=== PATIENT | male | born 1955 | race Caucasian/White ===

== ENCOUNTER 2016-08-30 14:55 | Inpatient (IN) | payer OTHER ==
[~2016-08-30] VITALS: Ht 180.3 cm; Wt 110.9 kg
--- NOTE | 2016-08-30 15:00 | NUR ---
SECURITY AT BEDSIDE FOR WANDING AND PT CHANGED INTO BLUE SCRUBS
--- NOTE | 2016-08-30 15:00 | NUR ---
PT BIBA ON PEER FOR PSYCH EVAL. PER PT, HE CALLED HIS SISTER TO VENT ABOUT WHAT A BAD DAY HE WAS HAVING AND SISTER BECAME WORRIED AND SENT PD AND EMS TO PT'S WORKPLACE. PT STATES HE IS WORRIED ABOUT HIS JOB NOW. 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 PT STATES THAT HE HAS BEEN TAKING ZOLOFT, BUSPAR AND ATIVAN (1MG TID) PRESCRIBED, BUT STATES THAT HIS MEDS "HAVE STOPPED WORKING". PT STATES THAT THIS HAPPENED LAST IN 2012. PT REPORTS PROTECTIVE FACTOR OF HIS ADOPTED DOG. 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
[2016-08-30] MEDS ORDERED: ATIVAN1 M1 PO (15:20)
--- NOTE | 2016-08-30 15:25 | ED PSYCHIATRIC COMPLAINT ---
See Addendum History of Present Illness General Chief Complaint: Psychiatric Related Complaint Stated Complaint: ON PEC, PSYCH EVAL Source: patient Exam Limitations: clinical condition, poor historian Vital Signs & Intake/Output Vital Signs & Intake/Output Vital Signs Date Time Temp Pulse Resp B/P B/P Pulse O2 O2 Flow FiO2 Mean Ox Delivery Rate 08/31 1019 97.9 67 18 142/72 97 Room Air 08/31 0827 97.1 72 18 154/80 99 Room Air 08/31 0628 97.8 75 18 175/92 98 Room Air 08/30 2247 Room Air 08/30 2236 97.8 78 18 171/88 96 Room Air 08/30 2039 Room Air 08/30 2010 97.8 89 19 161/79 96 Room Air 08/30 1753 Room Air 08/30 1515 98.0 86 16 138/84 95 Room Air ED Intake and Output 08/31 0000 08/30 1200 Intake Total Output Total Balance Weight Measurement Method Allergies Coded Allergies: peanut (DIARRHEA 08/30/16) Reconcile Medications Buspirone HCl 10 MG TABLET 1 TAB PO TID MENTAL HEALTH (Reported) Gabapentin 300 MG CAPSULE 1 CAP PO TID UNKNOWN (Reported) Levomefolate Calcium (L-Methylfolate) 15 MG TABLET 1 TAB PO DAILY SUPPLEMENT (Reported) Lorazepam (Ativan) 1 MG TABLET 1 TAB PO TID ANXIETY (Reported) Sertraline HCl 50 MG TABLET 3 TAB PO QAM MENTAL HEALTH (Reported) Triage Nurses Notes Reviewed? yes Onset: Abrupt Duration: unknown duration Timing: unknown HPI: 08/30/16 6:25 PM 61-year-old man presents to the emergency department brought in by police and EMS for depression and suicidal ideation. Apparently the patient said he was talking to his sister Harini earlier today and she became concerned about his comments and called 911. He was actually taken by police and EMS from his job. He denies suicidal ideation at this time. He says he just said some things that he didn't mean. He says his sister is dramatic and she currently has cancer. The onset of the symptoms was abrupt, the duration is really unknown, the severity is significant; as his symptoms required to come to the emergency department for care. He does state he has past medical history of depression and anxiety. (ASHLEY MADRID DO) Past History Travel History Traveled to [place] past 21 day No Medical History Any Pertinent Medical History? see below for history Psychiatric: anxiety, depression Surgical History Surgical History: non-contributory Family History Hx Contributory? No (ASHLEY MADRID DO) Review of Systems Review of Systems Constitutional: Reports: no symptoms. EENTM: Reports: no symptoms. Respiratory: Reports: no symptoms. Cardiovascular: Reports: no symptoms. GI: Reports: no symptoms. Genitourinary: Reports: no symptoms. Musculoskeletal: Reports: no symptoms. Skin: Reports: no symptoms. Neurological/Psychological: Denies: depressed. Hematologic/Endocrine: Reports: no symptoms. Immunologic/Allergic: Reports: no symptoms. (ASHLEY MADRID DO) Physical Exam Physical Exam General Appearance: alert, awake, anxious, moderate distress Head: atraumatic, normal appearance Eyes: Bilateral: normal appearance, PERRL, EOMI. Ears, Nose, Throat: normal pharynx, normal ENT inspection Neck: normal inspection, supple Respiratory: normal breath sounds, chest non-tender, no respiratory distress Cardiovascular: regular rate/rhythm Gastrointestinal: soft, non-tender Extremities: normal range of motion, injury present Neurological/Psychiatric: no motor/sensory deficits, awake, alert, anxious, oriented x 3 Appearance/Memory/Insight: disheveled Behavoir/Eye Contact/Speech: cooperative Thoughts/Hallucinations: delusions, flight of ideas, grandiose Skin: intact, normal color, warm/dry SAD PERSONS SAD PERSONS Response Value Male Sex? yes 1 Age <19 or >45 years? yes 1 Depression/Hopelessness? yes 2 Previous Attempts/Psych Care yes 1 Single//? yes 1 Social Support? has no support 1 Total 7 SAD PERSONS Done? yes (ASHLEY MADRID DO) Progress Differential Diagnosis: drug intoxication, drug overdose, drug withdrawal, depression, psychosis, bipolar disorder Plan of Care: Orders Procedure Date/time Status Regular Diet 08/31 B Active Admit to inpatient psych 08/31 1255 Active Continuous Observation Monitor 08/31 0433 Active Add-on Test (ER Only) 08/30 1831 Active Continuous Observation Monitor 08/30 1546 Active URINE DRUG SCREEN FOR ER ONLY 08/30 1546 Complete ETHANOL 08/30 1546 Complete COMPREHENSIVE METABOLIC PANEL 08/30 1546 Complete CBC WITHOUT DIFFERENTIAL 08/30 1546 Complete AMYLASE 08/30 1546 Complete ED CRISIS PSYCH CONSULT 08/30 1546 Active Current Medications Sig/Megha Start time Last Medication Dose Stop Time Status Admin Sertraline HCl 150 MG QAM 08/31 1000 UNVr 08/31 (Zoloft) 1018 Buspirone HCl 10 MG TID 08/30 2199 UNVr 08/31 (Buspar) 1018 Gabapentin 300 MG TID 08/30 2199 UNVr 08/31 (Neurontin) 1018 Lorazepam 1 MG TID 08/30 2199 AC 08/31 (Ativan) 1018 Trazodone HCl 50 MG AT BEDTIME 08/30 2199 UNVr 08/30 (Desyrel) 220 Laboratory Tests 08/30/16 1735: Urine Opiates Screen < 100.00, Methadone Screen 50, Barbiturate Screen < 60, Ur Phencyclidine Scrn < 6.00, Amphetamines Screen < 100, U Benzodiazepines Scrn 135 , Urine Cocaine Screen < 50, Urine Cannabis Screen > 80.00 H 08/30/16 1650: Anion Gap 11, Estimated GFR > 60, BUN/Creatinine Ratio 16.3, Glucose 89, Calcium 9.2, Total Bilirubin 0.4, AST 45, ALT 59, Alkaline Phosphatase 85, Total Protein 7.5, Albumin 4.6, Globulin 2.9, Albumin/Globulin Ratio 1.6, Amylase 55, CBC w Diff NO MAN DIFF REQ, RBC 5.36, MCV 85.2, MCH 28.6, RDW 13.7, MPV 7.4, Gran % 59.4, Lymphocytes % 29.6, Monocytes % 6.8, Eosinophils % 3.8, Basophils % 0.4, Absolute Granulocytes 7.7 H, Absolute Lymphocytes 3.9 H, Absolute Monocytes 0.9 H, Absolute Eosinophils 0.5, Absolute Basophils 0.1, PUBS MCHC 33.6, Serum Alcohol < 10.0 7:10 AM PATIENT SIGNED OUT TO ME BY DR SEGOVIA PENDING CRISIS EVALUATION. 10:45 AM PATIENT TO BE ADMITTED TO [facility] FOR MAJOR DEPRESSIVE DISORDER. WAITIGN FINAL APPROVAL FOR ADMISSION ORDER PER CRISIS. (CLAUDE RAMOS MD) Initial ED EKG: none (ASHLEY MADRID DO) Hand-Off Endorsed To: CLAUDE RAMOS MD Endorsed Time: 0700 Pending: consult Comments: PT HAS BEEN SEEN AND EVALUATED BY THE ACCOUNTING MACHINE OPERATOR. PT TO BE HELD OVERNIGHT FOR RE-EVAL IN THE MORNING. (JULIETTE KEMP,ZEHRA Ordoñez) Hand-Off Endorsed To: ASHELY PATRICIA MD Endorsed Time: 1132 Pending: consult (CRISIS INPATIENT BED) (CLAUDE RAMOS MD) Departure Departure Disposition: STILL A PATIENT Condition: Stable Departure Forms: Customer Survey General Discharge Information Comments 08/30/16 6:30 PM The patient will be signed out to Dr. Segovia at 7 PM (ASHLEY MADRID DO) Departure Clinical Impression Primary Impression: Major depression Psych Admission Note Psychiatric Admission: I have seen and evaluated JACKELINE VERMA. I have also reviewed all the pertinent lab results and diagnostic results. JACKELINE VERMA will be admitted to our inpatient Psychiatric unit for treatment and care. (CLAUDE RAMOS MD) Psych Admission Note Psychiatric Admission: I have also reviewed all the pertinent lab results and diagnostic results. JACKELINE VERMA will be admitted to our inpatient Psychiatric unit for treatment and care. (ASHLEY PATRICIA MD) Critical Care Note Critical Care Note Critical Care Time: 30-74 min (ASHLEY MADRID DO)
--- NOTE | 2016-08-30 15:33 | NUR ---
DR MADRID AT BEDSIDE FOR EVAL
[2016-08-30] MEDS ORDERED: BUSPIRONE HCL10 M1 PO (16:18)
[2016-08-30] MEDS ORDERED: L-METHYLFOLATE15 MG PO (16:19)
[2016-08-30] MEDS ORDERED: GABAPENTIN300 M2 PO (16:20)
[2016-08-30] MEDS ORDERED: SERTRALINE HCL50 MG PO (16:20)
--- NOTE | 2016-08-30 16:43 | NUR ---
PT'S SISTER CALLED TO SPEAK WITH PT. PT IS CURRENTLY ON PHONE WITH HER. HE REMAINS CALM. PER PT, HIS SISTER HAS STAGE 4 CANCER AND IS HEAVILY MEDICATED AND TENDS TO "BLOW THINGS OUT OF PROPORTION". SITTER AT DOOR.
--- NOTE | 2016-08-30 16:59 | NUR ---
BLOOD DRAWN AND SENT TO LAB BY THIS [facility]. SST/LAV
[2016-08-30 17:04] LABS: ABSOLUTE BASOPHIL COUNT 0.1 /CUMM (0.0-0.2); ABSOLUTE EOSINOPHIL COUNT 0.5 /CUMM (0.0-0.7); ABSOLUTE GRANULOCYTE CT 7.7 /CUMM (1.4-6.5); ABSOLUTE LYMPH COUNT 3.9 /CUMM (1.2-3.4); ABSOLUTE MONOCYTE COUNT 0.9 /CUMM (0.10-0.60); BASOPHIL % 0.4 % (0.0-2.0); EOSINOPHIL % 3.8 % (0-5); GRANULOCYTE % 59.4 % (42.2-75.2); HEMATOCRIT 45.7 % (42-52); MEAN CORPUSCULAR HGB 28.6 PG (27.0-31.0); MEAN CORPUSCULAR HGB CONC 33.6 G/DL (33.0-37.0); MEAN CORPUSCULAR VOLUME 85.2 FL (80.0-94.0); MEAN PLATELET VOLUME 7.4 FL (7.4-10.4); PLATELET COUNT 292 /CUMM (130-400); RBC DISTRIBUTION WIDTH 13.7 % (11.5-14.5); RED BLOOD CELL CT 5.36 /CUMM (4.70-6.10)
--- NOTE | 2016-08-30 17:52 | NUR ---
DR MADRID HAD ORDERED PT 1MG ATIVAN PO FOR ANXIETY BUT PT REFUSED THE MEDICATION
--- NOTE | 2016-08-30 18:34 | NUR ---
CANDACE SAEZ FROM CRISIS REQUESTED THAT THIS RN OBTAIN PT'S CELL PHONE FROM ER SAFE SO THAT PT COULD RETREIVE TELEPHONE NUMBERS. THIS RN REMOVED BAG, GAVE PT HIS CELL PHONE AND WILL WRITE ANOTHER NOTE WHEN PHONE IS BACK IN BAG AND BAG IS RETURNED TO ER SAFE.
--- NOTE | 2016-08-30 18:53 | NUR ---
PT'S CELL PHONE RETURNED TO VALUABLES BAG AND SEALED WITH TAPE. VALUABLES BAG RETURNED TO ER SAFE.
--- NOTE | 2016-08-30 19:20 | ED PSYCH CRISIS CONSULTATION ---
See Addendum Crisis Consult Basic Assessment Date of Consult: 08/30/16 Responsible Person/Accompanied By: Self with police PEER Insurance Authorization: Insurance #1: Insurance name: [employer] Phone number: Policy number: [id number] Group number: [id number] Authorization number: ED Provider: Patient's ED Provider: ASHLEY MADRID DO Primary Care Physician: Patient's PCP: PATIENT HAS NO PRIMARY CARE DR PCP's Phone Number: Current Psychiatrist: Dr. Steven Douglas, at [facility] Chief Complaint: Psychiatric Related Complaint Patient's Quote: "My sister who called 911 has always been overdramatic; outof proportion." Present Illness: 61 M BIBA on [place] today, 08/30/16 at 1500 with a CC of altered mental status. He had called his sister, Harini Kelly, , today to complain about his bad day, and made statements about being depressed and feeling worthless, and his medication is not working any longer. Harini called EMS and the police responded, and found the patient to have altered mental status. 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 This is the first presentation to this hospital; the patient is followed at [facility] by Dr. Steven Douglas. Last visit was in May; next is on October 02, per patient report. He states he is followed for anxiety and depression. The patient reported to his sister today that his medications had stopped working. He stated that in November 2012, his meds also stopped working, and he stayed overnight in [facility] for medication adjustment, where he was started on Ativan. He had been in talk therapy from November through February 2013 at [facility]. Med claim history shows: Buspirone 10 mg #90 tabs for 30 days on 08/26/16 Lorazepam 1 mg #90/30 days on 08/19/16 Sertraline 50 mg #90/30 days on 08/19/16 Gabapentin 300 mg #90/30 days on 08/13/16 Last Seroquel XR 300 mg #9 tabs for 9 days on 04/27/16 Older claims for Mirtazapine and trazodone. The patient confirms that he takes Buspirone as his primary antidepressant, meant to replace Zoloft. Zoloft keeps him anchored and is an adjunct for depression. He reports he takes Seroquel XR 300 mg for sleep, and also a "big yellow capsule" for depression. There is no med claim history for Seroquel recently, and not in the dose the patient reports. MSE: Alert and oriented to person, day, date, month, knows he is in a hospital in [place]. He is upset that he is being held here and states, "I'm not paying any hospital bills." Thought processes are linear with odd content. He denies any history of AH or VH , but content includes reporting that he has developed a discipline to step outside of himself, observe himself, and then report back to his physician. He reports his last experience with depersonalization was when he had an out of body experience during a shiatzu massage in 1992, so he could get relaxed. He also reports that he made a discovery in 2007 on how to make a focused electromagnetic pulse in his cellar, and handed that information off to his contact, an , but he cannot talk about it. He states that the EM pulses from [place] in WW caught the attention of UFOs who began to visit the Earth several years later. He denies any special paniagua. He denies symptoms of derealization; "I'm pretty well grounded, as in an electrical sense." Despite stating that his medication is not working, he reports that at every visit with his psychiatrist, he fills out a form to report problems with medications, and "I always tell him 'Yes,' the medications are fine." He then states that Dr. Douglas knows that the medications, including Zoloft are not working anymore. He reports he drinks one Fosters beer every two weeks, and that a couple of days ago, he had a couple of hist of marijuana, which he uses a few times per week. [ Note: Utox is positive for cannabis, only.] The patient denies suicidal or homicidal ideation and denies any history of suicide attempt. PSHx: The patient lives alone with his dog, adopted from [place]. 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 He has never been and has no children. He describes bad luck with women and feels his sister Kimmy has helped him with advice. He does not want to talk to her because she is a drug addict and stole the stamp collection belonging to himself and his parents. [place], whom he talked with today. She has an adopted daughter, the patient's niece, whom he has not seen in 5 years. he reports that his nephew is at [employer] in pre-med studies. He mentions another sister, Katie, whom he does not get along with. Collateral: 1. TC placed to his sister Harini, who called EMS, , 08/30/16 at 1830; [facility] 2. TC placed to Dr. Douglas, psychiatrist at [facility], X. [phone]; expect return call on 08/31/16. Patient's Address: [address] [place] [address] Other Phone Number: Who Do You Live With? Patient/Self Family/Informants Interviewed: Calls placed to sister Harini and Dr. Douglas, psychiatrist; expect return calls. Allergies - Coded Allergies: peanut (DIARRHEA 08/30/16) Current Medications - Scheduled Medications Buspirone HCl 10 MG TABLET 1 TAB PO TID MENTAL HEALTH #90 (Reported) Entered as Reported by EUFEMIA JONES on 08/30/16 1618 Gabapentin 300 MG CAPSULE 1 CAP PO TID UNKNOWN #90 (Reported) Entered as Reported by EUFEMIA JONES on 08/30/16 1620 Levomefolate Calcium (L-Methylfolate) 15 MG TABLET 1 TAB PO DAILY SUPPLEMENT (Reported) Entered as Reported by EUFEMIA JONES on 08/30/16 1619 Lorazepam (Ativan) 1 MG TABLET 1 TAB PO TID ANXIETY (Reported) Entered as Reported by EUFEMIA JONES on 08/30/16 1520 Sertraline HCl 50 MG TABLET 3 TAB PO QAM MENTAL HEALTH #90 (Reported) Entered as Reported by EUFEMIA JONES on 08/30/16 1620 Laboratory Results: Laboratory Tests 08/30/16 1735: Urine Opiates Screen < 100.00, Methadone Screen 50, Barbiturate Screen < 60, Ur Phencyclidine Scrn < 6.00, Amphetamines Screen < 100, U Benzodiazepines Scrn 135 , Urine Cocaine Screen < 50, Urine Cannabis Screen > 80.00 H 08/30/16 1650: Anion Gap 11, Estimated GFR > 60, BUN/Creatinine Ratio 16.3, Glucose 89, Calcium 9.2, Total Bilirubin 0.4, AST 45, ALT 59, Alkaline Phosphatase 85, Total Protein 7.5, Albumin 4.6, Globulin 2.9, Albumin/Globulin Ratio 1.6, Amylase 55, CBC w Diff NO MAN DIFF REQ, RBC 5.36, MCV 85.2, MCH 28.6, RDW 13.7, MPV 7.4, Gran % 59.4, Lymphocytes % 29.6, Monocytes % 6.8, Eosinophils % 3.8, Basophils % 0.4, Absolute Granulocytes 7.7 H, Absolute Lymphocytes 3.9 H, Absolute Monocytes 0.9 H, Absolute Eosinophils 0.5, Absolute Basophils 0.1, PUBS MCHC 33.6, Serum Alcohol < 10.0 Past History Past Medical History Neurological: NONE EENT: NONE Cardiovascular: NONE Respiratory: NONE Gastrointestinal: NONE Hepatic: NONE Renal: NONE Musculoskeletal: NONE Psychiatric: anxiety, depression Endocrine: NONE Blood Disorders: NONE Cancer(s): NONE GLASS SETTER/Reproductive: NONE Past Surgical History Surgical History: Spinal fusion 04/16/1998 after back injury at work. 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 How much used/taken Few hits How often Few times/week Substance Abuse Treatment Substance Abuse Treatment Past Substance Abuse [place] No (Denies) Inpatient Treatment No Outpatient Treatment No Current Mental Status Mental Status Orientation: Confused, Person, Place Affect: Anxious, Constricted Speech: Normal Neuro-vegetative: WNL Appearance Appearance- Dress/Hygiene: Hospital garb Behaviors Thought Process: Disorganized, Irrational, Tangential Thought Content: Delusions Memory: Short term memory Insight: Poor SI/HI Risk Assessment Past Suicidal Ideation/Attempts No (Denies) Current Suicidal Ideation/Att No Past Homicidal Ideation/Att: No Current Homicidal Ideation/Attempts No Degree of Intent: None Danger To: Self Gravely Disabled: Lack of Insight, Poor Judgment Risk Factors: high anxiety/distress, SA/MH hospitalized, substance abuse, lives alone, male Lethality Ratin PTSD Checklist PTSD Done? patient declined ED Management Sitter: Yes Restraints: No DSM5/PS Stressors/Medical Prob Diagnosis' (DSM 5, Stressors, Medical): F22 Delusional F32.9 Depression NOS F41.1 Anxiety NOS Current GAF: 28 Departure Disposition Psych Medical Clearance Date: 08/30/16 Medically Cleared at: 1755 Time Started: 1754 Time Ended: 1824 Referrals PATIENT HAS NO PRIMARY CARE DR (PCP/Family)
--- NOTE | 2016-08-30 19:32 | NUR ---
PT REQUESTED AND WAS PROVIDED WITH A 21MG NICOTINE PATCH. PT RAISED HIS VOICE AND SAID "HOW MANY TIMES DO I HAVE TO TELL YOU THIS INFORMATION?". THIS RN TOLD PT THAT BEFIRE HE CAN RECEIVE A MEDICATION THAT I NEED TO VERIFY HIS IDENTITY EACH TIME.
--- NOTE | 2016-08-30 20:38 | NUR ---
PT RESTING IN ROOM 13. PT CALM AND COOPERATIVE AT THIS TIME. SITTER AT DOOR.
--- NOTE | 2016-08-30 22:07 | NUR ---
PT MEDICATED WITH TRAZODONE 50MG PO FOR SLEEP AND MOTRIN 600MG FOR HEADACHE.
--- NOTE | 2016-08-30 22:10 | NUR ---
PT VERBALIZED HIS FRUSTRATION WITH NEEDING TO STAY OVERNIGHT AND STATES THAT HE "FEELS LIKE HE IS IN [facility] AND HE DID NOTHING WRONG". PT REPORTS THAT HE WILL LIKELY LOSE HIS JOB BECAUSE OF WHAT HAPPENED TODAY. PT ASKING ABOUT HIS CHOLESTEROL LEVELS. THIS RN SAID THAT SHE WOULD CHECK TO SEE IF IT WAS ORDERED WITH THE BLOODWORK. SITTER AT DOOR.
--- NOTE | 2016-08-30 22:13 | NUR ---
PT REFUSED THE FOLLOWING MEDS BECAUSE HE STATED HE ALREADY TOOK THEM THREE TIMES TODAY - ATIVAN 1MG, BUSPAR 10MG AND NEURONTIN 300MG.
--- NOTE | 2016-08-30 23:40 | NUR ---
RESTING QUIETLY REQUESTING TO USE HIS PHONE TO CALL HIS BOSS. VERBALIZED TO PT , NO PHONE CALLS AT THIS TIME. SITTER AT DOOR.
--- NOTE | 2016-08-31 02:46 | NUR ---
SLEEPING AT PRESENT
--- NOTE | 2016-08-31 07:36 | NUR ---
ASSUMED CARE. PT AWAKE AND ALERT CALM AND COPERATIVE AT THIS TIME, PT FINISHED HIS BREAKFAST AND SITTER ORDERED AN ICE COFFEE FOR HIM.
--- NOTE | 2016-08-31 07:39 | NUR ---
PT REQUESTING AM MEDS, STATES THAT HE USUALLY TAKES THEM AT 0530. PT AWARE THAT MEDS ARE ORDERED FOR 10 AM
--- NOTE | 2016-08-31 08:28 | NUR ---
PT AWAKE AND ALERT, SITTING UP ON STRETCHER, OFFERS NO COMPLAINTS
--- NOTE | 2016-08-31 10:19 | NUR ---
PT AWAKE AND ALERT/CALM COPERATIVE MEDICATED PER ORDER AT THIS TIME. PT OFFERS NO COMPLAINTS
--- NOTE | 2016-08-31 12:17 | NUR ---
DIRECTOR OF REAL ESTATE LINDA AT BEDSIDE FOR EVAL AND TO DETERMINE PLAN OF CARE. PLAN FOR POTENTIAL ADMISSION TO CPS
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
--- NOTE | 2016-08-31 13:53 | SOCIAL WORKER SOCIAL HX PSYCH ---
Social History Basic Assessment Insurance Authorization: Insurance #1: Insurance name: [employer] Phone number: Policy number: [id number] Group number: [id number] Authorization number: [id number] Source of Income/Entitlements: employment Primary Care Physician: Patient's PCP: PATIENT HAS NO PRIMARY CARE DR PCP's Phone Number: Present Problem: 61 M AGUTSÍN on [place] [employer] PEER today, 08/30/16 at 1500 with a CC of altered mental status. He had called his sister, Harini Kelly, , today to complain about his bad day, and made statements about being depressed and feeling worthless, and his medication is not working any longer. Harini called EMS and the police responded, and found the patient to have altered mental status. 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 This is the first presentation to this hospital; the patient is followed at [facility] by Dr. Steven Douglas. Last visit was in May; next is on October 02, per patient report. He states he is followed for anxiety and depression. The patient reported to his sister today that his medications had stopped working. He stated that in November 2012, his meds also stopped working, and he stayed overnight in [facility] for medication adjustment, where he was started on Ativan. He had been in talk therapy from November through February 2013 at [facility]. Med claim history shows: Buspirone 10 mg #90 tabs for 30 days on 08/26/16 Lorazepam 1 mg #90/30 days on 08/19/16 Sertraline 50 mg #90/30 days on 08/19/16 Gabapentin 300 mg #90/30 days on 08/13/16 Last Seroquel XR 300 mg #9 tabs for 9 days on 04/27/16 Older claims for Mirtazapine and trazodone. The patient confirms that he takes Buspirone as his primary antidepressant, meant to replace Zoloft. Zoloft keeps him anchored and is an adjunct for depression. He reports he takes Seroquel XR 300 mg for sleep, and also a "big yellow capsule" for depression. There is no med claim history for Seroquel recently, and not in the dose the patient reports. MSE: Alert and oriented to person, day, date, month, knows he is in a hospital in [place]. He is upset that he is being held here and states, "I'm not paying any hospital bills." Thought processes are linear with odd content. He denies any history of AH or VH , but content includes reporting that he has developed a discipline to step outside of himself, observe himself, and then report back to his physician. He reports his last experience with depersonalization was when he had an out of body experience during a shiatzu massage in 1992, so he could get relaxed. He also reports that he made a discovery in 2007 on how to make a focused electromagnetic pulse in his cellar, and handed that information off to his contact, an , but he cannot talk about it. He states that the EM pulses from [place] in caught the attention of Os who began to visit the Earth several years later. He denies any special paniagua. He denies symptoms of derealization; "I'm pretty well grounded, as in an electrical sense." Despite stating that his medication is not working, he reports that at every visit with his psychiatrist, he fills out a form to report problems with medications, and "I always tell him 'Yes,' the medications are fine." He then states that Dr. Douglas knows that the medications, including Zoloft are not working anymore. He reports he drinks one Fosters beer every two weeks, and that a couple of days ago, he had a couple of hist of marijuana, which he uses a few times per week. [ Note: Utox is positive for cannabis, only.] The patient denies suicidal or homicidal ideation and denies any history of suicide attempt. PSHx: The patient lives alone with his dog, adopted from [place]. 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 He has never been and has no children. He describes bad luck with women and feels his sister Kimmy has helped him with advice. He does not want to talk to her because she is a drug addict and stole the stamp collection belonging to himself and his parents. The patient has a sister in [facility], whom he talked with today. She has an adopted daughter, the patient's niece, whom he has not seen in 5 years. he reports that his nephew is at [employer] in pre-med studies. He mentions another sister, Katie, whom he does not get along with. Collateral: 1. TC placed to his sister Harini, who called EMS, , 08/30/16 at 1830; expect a return call tonight. 2. TC placed to Dr. Douglas, psychiatrist at [facility], [place], X. [address]; expect return call on 08/31/16. Patient seen today, 08/31/16 at 0830 in ED room 13: He is alert and oriented, reports a "steady" mood, but angry at his sister Kimmy (See below.) Affect is sad. Speech normal in rate and volume. He denies AH and denies VH. He denies SI and HI, and cites his taoist as a protective factor; he is a born again Mu-Ism and a devout Sikhism. He scales current depression as 3-4/10 and denies feelings of hopelessness, helplessness and worthlessness. He scales anxiety as 3/10, and is mainly concerned with the possibility of losing his job. New information today: He states that his youngest sister, Keysha, committed suicide in 1985 by carbon monoxide and alcohol poisoning. She drove her car into the dominguez and connected a hose to the exhaust of her car. He reports that the trigger for his call to his sister Harini yesterday, with the expressions of depression and worthlessness, were triggered by his discovery last week that Kimmy had stolen his heirChatterBlockom stamp collection as well as two boxes of family Glencross margaret. He states that Kimmy is a heroin addict, living with another male addict in [place]. He reports that the items were removed from the back of a closet in his home, and the door pulled shut on the outside door. He thinks Kimmy and her friend had picked the lock. The patient had hoped to use the stamp collection, which he states is worth $20,000, to help finance a new car. Collateral: 1. TC from sister Harini today, : The patient called her yesterday at lunchtime sounding very upset, and was abrupt, not saying hello, and telling her that he had some instructions for her, such as how to get into his apartment. He told her he was going to end it all, but did not mention a plan. He told her that life was not worth it. He mentioned that he could not find something and his job wan not going anywhere. He complained that he had spent a lot of money on his sister, Kimmy, and now she was stealing from him. Harini had also received a phone call from her sister Keysha 30 years ago, with similar instructions befor she committed suicide, hence her concern yesterday. She though the police would allow the patient to take himself to [facility] instead of bringing him to this ED. The patient has a dog at home, and the only one who can go check on it is their sister, Dr. Katie Calderon at [place]. Harini reports that the patient has had at least two psychotic episodes in the past, years ago, the last when he knocked on a paper maker's door and ranted about [employer]press. 2. I talked to the RN, Mary, at [facility] today at 0910. She verified the medications as: Buspirone 10 mg PO 3X/day Lorazepam 1 mg PO 3X/day Sertraline 150 mg PO every morning Neurontin/gabapentin 300 mg PO 3X/day Seroquel XR 300 mg PO at bedtime The patient called Mary yesterday requesting samples of Seroquel XR 300 mg, which is ow he has been receiving this medication. The last visit note from June with Dr. Douglas was partially read over the phone, and states that the patient reports poor sleep, awakening every 3-4 hours; appetite is good; he appears obsessed and worried, and wants to increase Zoloft from 100 mg to 150 mg daily. We still would like to talk to Dr. Douglas, , who left a VM on our phone. 3. The patient's sister, Katie Calderon MD, at 1055: She reports she is not at home, but she will ask the patient's landlady, Vanda to look in on the dog. Katie is willing to accept phone calls from staff on [facility]. She reports that one psychosocial element toxic to the patient is his relationship with their sister, Kimmy, and he is reluctant to sever that connection. The patient is agreeable to come to inpatient psychiatry voluntarily. Addendum Signed by: <Electronically signed by JOSEPH BLUE APRN> 08/31/16 1110 Primary Language? Egyptian Language(s) Spoken At Home: Egyptian Living Situation Rents or Owns Home? rents Other Living Arrangement: lives alone Feel Safe Where You Are Living Yes Feel Safe in Relationships? Yes Allergies - Coded Allergies: peanut (DIARRHEA 08/30/16) Current Medications - Scheduled Medications Buspirone HCl 10 MG TABLET 1 TAB PO TID MENTAL HEALTH #90 (Reported) Entered as Reported by EUFEMIA JONES on 08/30/16 1618 Gabapentin 300 MG CAPSULE 1 CAP PO TID UNKNOWN #90 (Reported) Entered as Reported by EUFEMIA JONES on 08/30/16 1620 Levomefolate Calcium (L-Methylfolate) 15 MG TABLET 1 TAB PO DAILY SUPPLEMENT (Reported) Entered as Reported by EUFEMIA JONES on 08/30/16 1619 Lorazepam (Ativan) 1 MG TABLET 1 TAB PO TID ANXIETY (Reported) Entered as Reported by EUFEMIA JONES on 08/30/16 1520 Sertraline HCl 50 MG TABLET 3 TAB PO QAM MENTAL HEALTH #90 (Reported) Entered as Reported by EUFEMIA JONES on 08/30/16 1620 Past History Past Medical History Neurological: NONE EENT: NONE Cardiovascular: NONE Respiratory: NONE Gastrointestinal: NONE Hepatic: NONE Renal: NONE Musculoskeletal: NONE Psychiatric: anxiety, depression Endocrine: NONE Blood Disorders: NONE Cancer(s): NONE 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 /Family History Place/Country of Origin: [facility] Childhood Family Constellation: raised by mom and dad and has 3 sisters Primary Childhood Caretakers: father, mother Family Life During Childhood: father taught him how to do many things but was emotionally abusive and drank alcohol. He also cheated on his mother and brought his girlfriend to shinto in front of the whole family Relationship w/Mother: Relationship w/Father: Any Sibling(s)? Yes Sibling's Gender(s)/Age(s): female Sibling 1:, female Sibling 2:, female Sibling 3: Relationship w/Sibling(s): pt says he is not close with his sibs Relationship w/Friends: states that he has many supportive friends Family Psych/Sub Abuse/Add Hx: father alcohol Abuse/Trauma History Trauma History/Current Trauma: emotional, verbal Victim or Perpretator? victim Patient's Age at Time of Trauma: 13 History of Trauma/Abuse Treatment? Yes Abuse/Trauma Treatment: Reports father was an alcoholic and was verbally abusive Legal History Current Legal Status: none Pending Court Dates: none Have you ever been arrested Yes Number of Arrests: 1 Hx of Juvenile Legal Charges? No Hx of Adult Legal Charges? No Care Coordinator none Psychosocial History Primary Support System: friend Strengths/Capabilities: has a masters degree in bio-medical engineering Weaknesses: none reported Physical Limitations (Interventions): None Last Physical: May 2013 History of Seizures? No History of Blackouts? No ADL Limitations: none reported [place]/Social/Peer Relations expresses that he has many supportive friends Meaningful Activities: automotive repair Childhood Latter Day: Mu-Ism, Worship Is Spirituality Important to You? yes Patient's Ethnicity: Moldovan, South African Cultural/Ethnic Issues: none reported Are There Developmental Issues? 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: as above Treatment of Prior Episodes: as above Diagnosis: Depression NOS Anxiety NOS Psychodynamic Issues: emotional abuse as a child Risk Factors: high anxiety/distress, SA/MH hospitalized, substance abuse, lives alone, male Substance Use/Abuse History Drug Use/Abuse Substance Used/Abused Marijuana First Use Not evaluated 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 How much used/taken Few hits How often Few times/week Substance Abuse Treatment Substance Abuse Treatment Inpatient Treatment No Outpatient Treatment No Sexual History Sexually Active No # of partners 0 Sexual Orientation Heterosexual Sexual Concerns: none reported Education History Highest Level of Education: master's degree Number of College Years: 6 College Degree/Major: Bio-medical engineering Preferred Learning Style: visual, auditory, experiential HX of Learning Difficulties: None reported Barriers to Learning: None reported Special Communication Needs: None reported Employment History Employment Employed Vocation/Occupational Hx: works at [employer] Attendance: Normal Performance: Good History Have You Been in The ? Yes If Yes, Explain: [facility] until 1997 Type of Discharge: General Date of Discharge: 1997 Current Mental Status Problem List: 1. Depression 2. Major depression Mental Status Orientation: Confused, Person, Place Affect: Anxious, Constricted Speech: Normal Neuro-vegetative: WNL Appearance Appearance- Dress/Hygiene: Hospital garb Behaviors Thought Process: Disorganized, Irrational, Tangential Thought Content: Delusions Memory: Short term memory Insight: Poor SI/HI Risk Assessment Past Suicidal Ideation/Attempts No (Denies) Current Suicidal Ideation/Att No Past Homicidal Ideation/Att: No Current Homicidal Ideation/Attempts No Degree of Intent: None Danger To: Self Gravely Disabled: Lack of Insight, Poor Judgment Risk Factors: High Anxiety/Distress, SA/MH Hospitalization(s), Lives alone, Male Lethality Ratin - Conclusion and Recommendations for treatment - and discharge planning Summary: 61 M AGUSTÍN on [place] [employer] PEER today, 08/30/16 at 1500 with a CC of altered mental status. He had called his sister, Harini Kelly, , today to complain about his bad day, and made statements about being depressed and feeling worthless, and his medication is not working any longer. Harini called EMS and the police responded, and found the patient to have altered mental status. 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 This is the first presentation to this hospital; the patient is followed at [facility] by Dr. Steven Douglas. Last visit was in May; next is on October 02, per patient report. He states he is followed for anxiety and depression. The patient reported to his sister today that his medications had stopped working. He stated that in November 2012, his meds also stopped working, and he stayed overnight in [facility] for medication adjustment, where he was started on Ativan. He had been in talk therapy from November through February 2013 at [facility]. Med claim history shows: Buspirone 10 mg #90 tabs for 30 days on 08/26/16 Lorazepam 1 mg #90/30 days on 08/19/16 Sertraline 50 mg #90/30 days on 08/19/16 Gabapentin 300 mg #90/30 days on 08/13/16 Last Seroquel XR 300 mg #9 tabs for 9 days on 04/27/16 Older claims for Mirtazapine and trazodone. The patient confirms that he takes Buspirone as his primary antidepressant, meant to replace Zoloft. Zoloft keeps him anchored and is an adjunct for depression. He reports he takes Seroquel XR 300 mg for sleep, and also a "big yellow capsule" for depression. There is no med claim history for Seroquel recently, and not in the dose the patient reports. MSE: Alert and oriented to person, day, date, month, knows he is in a hospital in [place]. He is upset that he is being held here and states, "I'm not paying any hospital bills." Thought processes are linear with odd content. He denies any history of AH or VH , but content includes reporting that he has developed a discipline to step outside of himself, observe himself, and then report back to his physician. He reports his last experience with depersonalization was when he had an out of body experience during a shiatzu massage in 1992, so he could get relaxed. He also reports that he made a discovery in 2007 on how to make a focused electromagnetic pulse in his cellar, and handed that information off to his contact, an , but he cannot talk about it. He states that the EM pulses from [place] in WW caught the attention of UFOs who began to visit the Earth several years later. He denies any special paniagua. He denies symptoms of derealization; "I'm pretty well grounded, as in an electrical sense." Despite stating that his medication is not working, he reports that at every visit with his psychiatrist, he fills out a form to report problems with medications, and "I always tell him 'Yes,' the medications are fine." He then states that Dr. Douglas knows that the medications, including Zoloft are not working anymore. He reports he drinks one Fosters beer every two weeks, and that a couple of days ago, he had a couple of hist of marijuana, which he uses a few times per week. [ Note: Utox is positive for cannabis, only.] The patient denies suicidal or homicidal ideation and denies any history of suicide attempt. PSHx: The patient lives alone with his dog, adopted from [place]. 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 He has never been and has no children. He describes bad luck with women and feels his sister Kimmy has helped him with advice. He does not want to talk to her because she is a drug addict and stole the stamp collection belonging to himself and his parents. The patient has a sister in [facility], whom he talked with today. She has an adopted daughter, the patient's niece, whom he has not seen in 5 years. he reports that his nephew is at [employer] in pre-med studies. He mentions another sister, Katie, whom he does not get along with. Collateral: 1. TC placed to his sister Harini, who called EMS, , 08/30/16 at 1830; expect a return call [facility]. 2. TC placed to Dr. Douglas, psychiatrist at [facility], [place], X. [address]; expect return call on 08/31/16. Patient seen today, 08/31/16 at 0830 in ED room 13: He is alert and oriented, reports a "steady" mood, but angry at his sister Kimmy (See below.) Affect is sad. Speech normal in rate and volume. He denies AH and denies VH. He denies SI and HI, and cites his taoist as a protective factor; he is a born again Mu-Ism and a devout Sikhism. He scales current depression as 3-4/10 and denies feelings of hopelessness, helplessness and worthlessness. He scales anxiety as 3/10, and is mainly concerned with the possibility of losing his job. New information today: He states that his youngest sister, Keysha, committed suicide in 1985 by carbon monoxide and alcohol poisoning. She drove her car into the dominguez and connected a hose to the exhaust of her car. He reports that the trigger for his call to his sister Harini yesterday, with the expressions of depression and worthlessness, were triggered by his discovery last week that Kimmy had stolen his heirloom stamp collection as well as two boxes of family Phraxis. He states that Kimmy is a heroin addict, living with another male addict in [place]. He reports that the items were removed from the back of a closet in his home, and the door pulled shut on the outside door. He thinks Kimmy and her friend had picked the lock. The patient had hoped to use the stamp collection, which he states is worth $20,000, to help finance a new car. Collateral: 1. TC from sister Harini today, : The patient called her yesterday at lunchtime sounding very upset, and was abrupt, not saying hello, and telling her that he had some instructions for her, such as how to get into his apartment. He told her he was going to end it all, but did not mention a plan. He told her that life was not worth it. He mentioned that he could not find something and his job wan not going anywhere. He complained that he had spent a lot of money on his sister, Kimmy, and now she was stealing from him. Harini had also received a phone call from her sister Keysha 30 years ago, with similar instructions befor she committed suicide, hence her concern yesterday. She though the police would allow the patient to take himself to [facility] instead of bringing him to this ED. The patient has a dog at home, and the only one who can go check on it is their sister, Dr. Katie Calderon at [address] [place], [place]. Harini reports that the patient has had at least two psychotic episodes in the past, years ago, the last when he knocked on a paper maker's door and ranted about bin Laden. 2. I talked to the RN, Mary, at [facility] today at 0910. She verified the medications as: Buspirone 10 mg PO 3X/day Lorazepam 1 mg PO 3X/day Sertraline 150 mg PO every morning Neurontin/gabapentin 300 mg PO 3X/day Seroquel XR 300 mg PO at bedtime The patient called Mary yesterday requesting samples of Seroquel XR 300 mg, which is ow he has been receiving this medication. The last visit note from June with Dr. Douglas was partially read over the phone, and states that the patient reports poor sleep, awakening every 3-4 hours; appetite is good; he appears obsessed and worried, and wants to increase Zoloft from 100 mg to 150 mg daily. We still would like to talk to Dr. Douglas, , who left a VM on our phone. 3. The patient's sister, Katie Calderon MD, at 1055: She reports she is not at home, but she will ask the patient's landladyVanda to look in on the dog. Katie is willing to accept phone calls from staff on [facility]. She reports that one psychosocial element toxic to the patient is his relationship with their sister, Kimmy, and he is reluctant to sever that connection. The patient is agreeable to come to inpatient psychiatry voluntarily. Addendum Signed by: <Electronically signed by JOSEPH BLUE APRN> 08/31/16 1654
--- NOTE | 2016-08-31 14:14 | NUR ---
PT OFFERS NO COMPLAINTS. READING MAGAZINE. VSS. OFFERS NO COMPLAINTS. INFORMED WAITING PROVIDED REGARDING PLAN FOR ADMISSION TO CPS
--- NOTE | 2016-08-31 15:02 | NUR ---
RECEIVE REPORT FROM AYAZ COLLINS
[2016-08-31 16:27] VITALS: BP 157/95
[2016-08-31 19:43] VITALS: BP 184/93
--- NOTE | 2016-08-31 20:27 | NUR ---
Patient admitted to [facility] from ED. Patient reports depression and anxiety, tangential at times often changing subject of admission. Patient presents anxious about admission, opposed to delusional. Patient reports using cannabis. Patient contracted for safety while on the unit. Patient reports pain 6/10, with 10 being the highest. Patient able to request meds with positive results. Looking forward to assisting Amrik with mental health.
[2016-09-01 07:55] VITALS: BP 142/79
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
[2016-09-01 12:14] VITALS: BP 147/72
--- NOTE | 2016-09-01 13:07 | NUR ---
PT IS STABLE WITH FULL RANGE OF AFFECT, PRESENT WITHIN THE COMMUNITY AND INTERACTING WITH PEERS/STAFF. PT CAN BE HYPERRELIGIOUS AT TIMES AND HIS THOUGHT CONTENT IS SOMEWHAT BIZARRE INCLUDING STATEMENTS ABOUT "MY COMPANY CREATES ANTIWAREFARE MATERIAL AND I GAVE IT TO MY CONTACT". OTHERWISE PT IS APPROPRIATE WITHOUT ANY COMPLAINTS. VS ARE STABLE AND DENIES ANY SI/HI TO THIS MHW.
--- NOTE | 2016-09-01 15:04 | History & Physical ---
General Information and HPI History of Present Illness: This middle-aged male was admitted for the first time to [place] psychiatry because of not feeling well. He reportedly was feeling too depressed and expressed some suicidal ideation and therefore ambulance was called by the family and he was brought to the hospital. He denies any significant physical problems recently. He claims that he has been seeing a psychiatrist regularly in [facility] and has been taking his medications. He has had back surgery in the 1998 and has not had any other significant medical problems recently. He claims his last physical exam was about 4 years ago from his physician and he was fine without any specific problems. He does admit to smoking a pack of cigarettes a day. 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 He claims his father of heart attack at age 87 and the mother had some known cancer and breast cancer his which spread to the bones as well as thyroid cancer and at age 80. He claims he has 3 living sisters and one sister from some kind of cancer. The patient is single never and never had any children. Allergies/Medications Allergies: Coded Allergies: peanut (DIARRHEA 08/30/16) Home Med list Buspirone HCl 10 MG TABLET 1 TAB PO TID MENTAL HEALTH (Reported) Gabapentin 300 MG CAPSULE 1 CAP PO TID UNKNOWN (Reported) Levomefolate Calcium (L-Methylfolate) 15 MG TABLET 1 TAB PO DAILY SUPPLEMENT (Reported) Lorazepam (Ativan) 1 MG TABLET 1 TAB PO TID ANXIETY (Reported) Sertraline HCl 50 MG TABLET 3 TAB PO QAM MENTAL HEALTH (Reported) Past History Travel History Traveled to [place] past 21 day No Medical History Neurological: NONE EENT: NONE Cardiovascular: NONE Respiratory: NONE Gastrointestinal: NONE Hepatic: NONE Renal: NONE Musculoskeletal: NONE Psychiatric: anxiety, depression Endocrine: NONE Blood Disorders: NONE Cancer(s): NONE TRAIN STARTER/Reproductive: NONE Isolation History: Standard Surgical History Surgical History: Spinal fusion 04/16/1998 after back injury at work. Past Family/Social History Psychosocial History ETOH Use: occasional use Illicit Drug Use: denies illicit drug use Employment History Employment Employed Profession/Employer works at [employer] Review of Systems Review of Systems Constitutional: Denies: no symptoms, see HPI. EENTM: Denies: no symptoms. Cardiovascular: Denies: no symptoms. Respiratory: Denies: no symptoms. GI: Denies: no symptoms. Genitourinary: Denies: no symptoms. Musculoskeletal: Denies: no symptoms. Skin: Denies: no symptoms. Neurological/Psychological: Reports: see HPI, depressed, emotional problems. Hematologic/Endocrine: Denies: no symptoms. Exam & Diagnostic Data Last 24 Hrs of Vital Signs/I&O Vital Signs Date Time Temp Pulse Resp B/P B/P Pulse O2 O2 Flow FiO2 Mean Ox Delivery Rate 09/01 1214 94 147/72 09/01 0755 97.0 78 142/79 08/31 1943 98.2 72 184/93 08/31 1627 99.2 73 157/95 Intake & Output 09/01 1600 09/01 0800 09/01 0000 Intake Total Output Total Balance Patient 244 lb Weight Physical Exam General Appearance Alert, Oriented X3, Cooperative, No Acute Distress Skin No Rashes, No Breakdown, No Significant Lesion HEENT Atraumatic, PERRLA, EOMI, Mucous Membr. moist/pink Neck Supple, No JVD, No thryomegaly, +2 Carotid Pulse wo Bruit Lymphatic Cervical nl Cardiovascular Regular Rate, Normal S1, Normal S2, No Murmurs, Gallops, Rubs Lungs Clear to Auscultation, Normal Air Movement Abdomen Normal Bowel Sounds, Soft, No Tenderness, No Hepatospenomegaly, No Masses Neurological Exam Findings: Normal Gait, Normal Speech, Strength at 5/5 X4 Ext, Normal Tone, Cranial Nerves 3-12 NL, Reflexes 2+ Cranial Nerves II through XII: Within normal limits and grossly intact Extremities No Clubbing, No Cyanosis, No Edema, No Tenderness/Swelling Assessment/Plan Assessment: This middle-aged male is admitted to [facility] psychiatry for the first time. Was admitted for increased depression and feeling too depressed and expressed some ideas of not worth living anymore but he claims that he is feeling fine now and he does not feel like killing himself. He claims the last admission and psychiatry was about 9-10 years or so ago in [place] in [facility]. Presently he is fairly stable from medical standpoint and there is no acute medical illness at this time. His labs show a normal electrolytes and liver functions and his cholesterol is somewhat elevated but this was probably not a fasting specimen. He does not require any specific treatment from medical standpoint but we will repeat his lipid profile in the fasting state and get an EKG since he has not had an EKG on admission and he is a smoker with somewhat elevated cholesterol. We will also use low dose of nicotine since he only smokes about half a pack of cigarettes a day and presently is on 21 mg patch. There is no need for any other workup or treatment. As Ranked By This Provider Problem List: 1. Depression 2. Major depression Miscellaneous Miscellaneous Documentation Attending Case Discussed With: CRICKET KEMP,HARRIET Briceno Primary Care Physician: PATIENT HAS NO PRIMARY CARE DR Patient sees these Specialists none Level of Patient Care: DARLENE Rodriguez Attending MD Review Statement Attending Statement Attending MD Statement: examined this patient, reviewed EMR data (avail), discussed with nursing Attending Assessment/Plan: This middle-aged male is admitted for increased depression. He is fairly stable from medical standpoint without any acute medical illness. We will repeat his lipid profile and get an EKG and decrease his nicotine to 7 mg patch but he does not require any other treatment at this time.
[2016-09-01 16:20] VITALS: BP 170/78
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
--- NOTE | 2016-09-01 17:52 | NUR ---
PT IS CALM, COOPERATIVE WITH STAFF AND PEERS, AND COMPLIANT WITH UNIT RULES. OFTEN IN MILIEU, SEEMS TO BE INTERACTING WELL WITH OTHERS. MOOD IS STABLE, AFFECT APPEARS EUTHYMIC TO FULL RANGE - CAN ALSO APPEAR ANXIOUS AT TIMES. COMMUNICATION IS ORGANIZED, LOUD AT TIEMS, BUT NORMAL IN MOST RESPECTS. APPETITE IS NORMAL. PT DENIES SI AT THIS TIME.
[2016-09-01 19:54] VITALS: BP 132/86
--- NOTE | 2016-09-02 07:06 | NUR ---
PT SLEPT. PT LIKES HIS CURRENT MED REGIMENT.
[2016-09-02 08:02] VITALS: BP 135/78
[2016-09-02 08:11] LABS: ABSOLUTE BASOPHIL COUNT 0.1 /CUMM (0.0-0.2); ABSOLUTE EOSINOPHIL COUNT 0.7 /CUMM (0.0-0.7); ABSOLUTE GRANULOCYTE CT 8.4 /CUMM (1.4-6.5); ABSOLUTE LYMPH COUNT 5.5 /CUMM (1.2-3.4); ABSOLUTE MONOCYTE COUNT 1.3 /CUMM (0.10-0.60); BASOPHIL % 0.5 % (0.0-2.0); EOSINOPHIL % 4.2 % (0-5); HEMATOCRIT 50.4 % (42-52); MEAN CORPUSCULAR HGB 29.6 PG (27.0-31.0); MEAN CORPUSCULAR HGB CONC 34.1 G/DL (33.0-37.0); MEAN CORPUSCULAR VOLUME 86.9 FL (80.0-94.0); MEAN PLATELET VOLUME 8.3 FL (7.4-10.4); PLATELET COUNT 316 /CUMM (130-400); RBC DISTRIBUTION WIDTH 13.6 % (11.5-14.5); RED BLOOD CELL CT 5.79 /CUMM (4.70-6.10); WHITE BLOOD CELL COUNT 15.9 /CUMM (4.8-10.8)
--- NOTE | 2016-09-02 10:30 | NUR ---
PT IS CALM, COOPERATIVE WITH STAFF AND PEERS, AND COMPLIANT WITH UNIT RULES. OFTEN IN MILIEU, INTERACTING WELL WITH OTHERS. MOOD IS STABLE, AFFECT APPEARS EUTHYMIC TO FULL RANGE, COMMUNICATIONIS ORGANIZED AND APPEARS NORMAL IN ALL RESPECTS, AND APPETITE IS NORMAL. PT DENIES SI AT THIS TIME.
--- NOTE | 2016-09-02 11:57 | IP INCIDENTAL NOTE PSYCH ---
Incidental Note Notation: VM left at 11:50AM today for Dr. Douglas at [facility], #[phone], requesting collateral information. Awaiting return call.
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
[2016-09-02 12:41] VITALS: BP 148/90
[2016-09-02 16:04] VITALS: BP 150/90
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
--- NOTE | 2016-09-02 18:46 | SOCIAL WORKER PROG NOTE PSYCH ---
Social Work Progress Note Progress Note 5:01pm: Sw contacted insurance company to provide clinical in order to obtain authorization for additional inpt units: spoke with: Veronica Gee dates: 08/28-09/02 units: 6 auth #: [id number] review: 09/03 upon review, requesting "a better dx" with further clarification on what dx the doctor is working towards and more information on family hx as well as when sx started, specifically regarding paranoia and psychosis
[2016-09-02 20:11] VITALS: BP 142/85
--- NOTE | 2016-09-02 21:01 | NUR ---
PT IS VISIBLE ON UNIT, SOCIALIZING WITH PEERS AND ATTENDING AA. VERY PLEASANT AND COOPERATIVE WITH STAFF. NO COMPLAINTS OR SI REPORTED. PT HAS A STABLE MOOD AND FULL RANGE AFFECT.
[2016-09-03 07:46] VITALS: BP 147/78
--- NOTE | 2016-09-03 08:30 | CP SOUTH PROGRESS NOTE PSYCH ---
Psych (Inpt) Progress Note Progress Note Include the following elements, when applicable: Involvement in the active treatment of the patient with behavioral observations of the patient and the patient's response to the treatment. Review of the ongoing treatment process in the context of the treatment plan. Indication of how multi-disciplinary staff members are carrying out the treatment plan. Plans for future interventions and recommendations for revision of the treatment plan. Liaison with other physicians/providers. Progress Note: I discussed this patient's progress to date, current mental status, treatment process in the context of the treatment plan, and discharge planning with staff/ team in the daily morning inpatient team meeting. I also met with the patient myself in individual session. Current Medications Sig/Megha Start time Last Medication Dose Route Stop Time Status Admin Aripiprazole 5 MG 09/01 AC 09/02 PO 2143 Aripiprazole 2 MG Q6-PRN PRN 09/01 1200 AC PO Buspirone HCl 10 MG TID 08/30 2200 AC 09/02 PO 2143 Gabapentin 300 MG TID 08/30 2200 AC 09/02 PO 2143 Ibuprofen 600 MG Q6-PRN PRN 09/02 1015 AC 09/02 PO 1226 Lorazepam 1 MG TID 09/03 1000 AC PO Lorazepam 1 MG .STK-MED ONE 09/02 2137 DC PO 09/02 2138 Lorazepam 1 MG .STK-MED ONE 09/02 1643 DC PO 09/02 1644 Lorazepam 1 MG .STK-MED ONE 09/02 0914 DC PO 09/02 0915 Lorazepam 1 MG TID 08/30 2200 DC 09/02 PO 2143 Nicotine 7 MG DAILY 09/01 1504 AC 09/02 TOP 0921 Sertraline HCl 150 MG QAM 08/31 1000 AC / PO 0922 Trazodone HCl 50 MG AT BEDTIME 08/30 2200 AC / PO 2143 Vital Signs Date Time Temp Pulse Resp B/P B/P Pulse O2 O2 Flow FiO2 Mean Ox Delivery Rate 09/03 745 97.7 65 147/78 09/02 2010 98.1 88 142/85 09/02 1604 74 150/90 09/02 1241 77 148/90 A: Chart, progress notes, vital signs, labs and medication list reviewed. BP mildly elevated. All other VS within normal limits. No new lab results today. Met with patient individually this afternoon on the date of discharge. He presented alert and oriented to person, place, time and situation. Speech monotone, normal in rate and volume. Affect mostly masked, with slight range. Mood "so much better, I'm happy I came here." He had no complaints. Rated depression/sadness as 0/10 (10 being the worst). Rated anxiety a 0/10 (10 being the worst). He denied passive and active suicidal ideation, plans and intent. Denied homicidal ideation. He stated and also believed he will not harm himself or others. Identified protective factors including "my uatsdin," "my priests," "my dog" and friend "Vanda."Denied feeling hopeless, helpless, worthless and guilty. Denied auditory and visual hallucinations, and paranoid thoughts. There was no evidence of astrid delusions. Thought process was linear, goal-directed to resume working and participate in IOP tx. He reported tolerating medications well and denied untoward effects. He reported feeling safe and ready for discharge. P: 1. Discharge today to home and self-care. 2. F/u at [facility] today, 09/03/16, at 12:45pm. 3. F/u at [facility], [place], [place], for PCP appointment with Dr. Ramirez on 09/13/16 at 8AM. 4. Patient was strongly advised to abstain from cannabis use. 5. Patient was advised that in the event of an emergency to call [phone], go to nearest emergency department. Patient verbalized understanding of instructions.
--- NOTE | 2016-09-03 10:46 | SOCIAL WORKER PROG NOTE PSYCH ---
Social Work Progress Note Progress Note Completed and Faxed IOP transfer
[2016-09-03] MEDS ORDERED: GABAPENTIN300 M2 PO (11:46)
[2016-09-03] MEDS ORDERED: BUSPIRONE HCL10 M1 PO (11:46)
[2016-09-03] MEDS ORDERED: NICOTINE PATCH1 EAC1 TOP (11:46)
[2016-09-03] MEDS ORDERED: ATIVAN1 M1 PO (11:46)
[2016-09-03] MEDS ORDERED: ABILIFY5 M1 PO (11:46)
[2016-09-03] MEDS ORDERED: SERTRALINE HCL50 MG PO (11:46)
--- NOTE | 2016-09-03 11:58 | DISCHARGE SUMMARY REPORT-PSYCH ---
Visit Information Visit Dates/Diagnosis' Admission Date: 08/31/16 Discharge Date: 09/03/16 Reason for Admission: Exacerbation in depression and anxiety; concern for altered mental status. Psy Discharge Primary Diag: Unspecified mood disorder with possible mild psychotic features Psy Discharge Secondary Diag: R/O Substance-induced mood disorder; R/O MDD with psychotic features; R/O Unspecified anxiety disorder; R/O ASD; Cannabis use disorder; Nicotine use disorder. Hospital Course Significant Lab Findings: Lab Cholesterol 298 MG/DL H 09/02/16 0552 Cholesterol/HDL Ratio 7 % H 09/02/16 05 LDL Cholesterol, Calc 195 mg/dL H 09/02/16551 Triglycerides 310 mg/dL H 09/02/16551 WBC 15.9 /CUMM H 09/02/16 05 Urine Cannabis Screen > 80.00 NG/ML H 08/30/16 1735 09/01/2016 EKG: Sinus arrhythmia with a rate of 73. Multiple ventricular premature complexes. Nonspecified intraventricular conduction delay. Probable inferior infarct, age indeterminate. QT: 408. QTc: 450. P: 54. QRS: 48. T-19. Abnormal EKG per cottage cheese maker, Dr. Don Gipson. Course Complications: None. Consultations: The patient was seen for admission history and physical by optical mechanic apprentice Dr. Suresh Banks. Please see his note for additional information. Per Dr. Suresh Banks, who ordered and reviewed the patient's EKG, no further testing was required inpatient. Patient was advised to follow up with his PCP, per MD. WBCs were also noted to be elevated, however, the patient remained asymptomatic. No further medical work-up was recommended. Allergies: Coded Allergies: peanut (DIARRHEA 08/30/16) Hospital Course/TX Response: The patient was monitored on the unit for safety, suicidal ideation, mood and suspicion of psychosis. He participated in multimodal treatments on the unit. Seroquel XR 300mg QHS was discontinued, as the patient did not find it helpful or know the reason why he had been prescribed it. He denied a history of psychosis, mood swings, and difficulty falling and staying asleep. He stated that his antidepressant, Zoloft, was no longer working. He agreed to continue Zoloft 150mg daily for depression and anxiety. Abilify 5mg nightly was started to augment antidepressent effect and for clear thoughts. Although there was no overt evidence of psychosis, the patient did exhibit bizarre thoughts and his thought process was frequently circumstantial. Gabapentin 300mg TID was continued for anxiety/discomfort. Buspar 10mg TID was additionally continued for anxiety. The patient reported tolerating all medications well and denied untoward effects. During the hospital course, the patient's mood and affect improved. He consistently denied suicidal ideation, homicidal ideation, paranoid thoughts, delusions, auditory and visual hallucinations. A phone conference was held with the patient, his friend/landlord of 10 years, Isabella Dc LCSW, and Ramo. Vanda reported that she was suprised the patient was brought to the hospital. She denied recent concerns related to changes in the patient's mood, level if functioning or behavior. Stated that she will continue to be a support for the patient post-discharge, as she lives above him and has frequent contact with him. She was in favor of discharge plan to [facility] and expressed no safety concerns surrounding the patient's discharge. The patient was also in favor of discharge plan. On the date of discharge, 09/03/16, the patient presented alert and oriented to person, place, time and situation. Speech monotone, normal in rate and volume. Affect mostly masked, with slight range. Mood "so much better, I'm happy I came here." He had no complaints. Rated depression/sadness as 0/10 (10 being the worst). Rated anxiety a 0/10 (10 being the worst). He denied passive and active suicidal ideation, plans and intent. Denied homicidal ideation. He stated and also believed he will not harm himself or others. Identified protective factors including "my amish," "my priests," "my dog" and friend "Vanda."Denied feeling hopeless, helpless, worthless and guilty. Denied auditory and visual hallucinations, and paranoid thoughts. There was no evidence of astrid delusions. Thought process was linear, goal-directed to resume working and to participate in IOP tx. He reported tolerating medications well and denied untoward effects. He reported feeling safe and ready for discharge. Discharge HBIPS - Tobacco Use Treatment Offered Post DC Medications Offered: Script Given-See Med List Post DC Tobacco Treatment Plan: Refused Tobacco Tx Pgm - EtOH/Drug Use D/O Treatment Offered Post DC Medications Offered: Med Not Indicated for D/O Post DC EtOH/SubAbuse TX Plan: [facility] Program Appt Date: 09/03/16 Program Appt Time: 1245 Metabolic Screening - Screen if on a Neuroleptic Medication - Metabolic screening should include: - Blood Pressure, BMI, Glucose or Hgb A1c, & a - Lipid profile from within the past 365 days. Metabolic Screening () Not Applicable, patient not on a neuroleptic. OR ([X]) Patient on a neuroleptic(s) . Enter below results for Glucose or Hemoglobin A1C, and lipid panel if obtained during the last 365 days. BMI: 34.100 Blood Pressure: 151/78 Laboratory Results (If applicable): Lab Cholesterol 298 MG/DL H 09/02/16 0552 Cholesterol/HDL Ratio 7 % H 09/02/16 0552 Glucose 89 mg/dL 08/30/16 1650 HDL Cholesterol 41 mg/dL 09/02/16 0552 LDL Cholesterol, Calc 195 mg/dL H 09/02/16 0552 Triglycerides 310 mg/dL H 09/02/16 0552 Discharge Instructions General Discharge Information Discharge Medications: Discharge Medications- (Dose, route, freq, indication): START taking these NEW Home Medications: Nicotine (Nicotine Dose: On the skin, DAILY for Qty: 14 Sent to Patch) 7 MG/24 HOUR 7 Milligram tobacco cessation Refills: 0 Pharm 1 PATCH.TD24 Apply 1 patch topically to upper arm QAM and remove before HS. Gabapentin Dose: ORAL, THREE TIMES DAILY Qty: 42 Sent to (Gabapentin) 300 MG 300 Milligram for off-label anxiety Refills: 0 Pharm 1 CAPSULE Take 1 cap po TID. Sertraline HCl Dose: ORAL, Every Morning for Qty: 42 Sent to (Sertraline HCl) 50 150 Milligram depression/anxiety Refills: 0 Pharm 1 MG TABLET Take 3 tabs po QAM. Aripiprazole Dose: ORAL, 2000 for mood Qty: 14 Sent to (Abilify) 5 MG 5 Milligram stability/clear thoughts Refills: 0 Pharm 1 TABLET Take 1 tab po QPM. Buspirone HCl Dose: ORAL, THREE TIMES DAILY Qty: 42 Sent to (Buspirone HCl) 10 10 Milligram for anxiety Refills: 0 Pharm 1 MG TABLET Take 1 tab po TID. CONTINUE taking these Home Medications: Lorazepam (Ativan) 1 MG Dose: ORAL, THREE TIMES DAILY Renewed TABLET 1 Tablet for ANXIETY Printed Take 1 tab po TID. 1: [facility], [address] [phone] Your Preferred Pharmacy [facility] [address] [place] [address] Multiple Neuroleptics: ([X]) Not Applicable OR Document below three failed attempts at monotherapy, or a plan to taper to monotherapy, or augmentation of Clozapine. () Patient's Diet: Regular. Patient's Activity: No restrictions. DC Disposition: To return to home and self care. Recommendations: The patient was advised to please take his medications as prescribed. He was advised to abstain from all substances. He was advised to attend scheduled PCP appointment with Dr. Ramierz per Dr. Banks's recommendation to follow up regarding abnormal EKG, in addition to elevated cholesterol and triglycerides. He was advised that in the event of an emergency to call 911/go to nearest emergency department. The patient verbalized understanding of all instructions. Referred To: Post Discharge Referrals [facility] - Internal Medicine Dr. Sadaf Ramirez [address] [facility], [address] [place] [address] [phone] *Appointment scheduled with Dr. Ramirez on 09/13/16 at 8:00AM. Please bring your ID, insurance card and a list of all of your medications to appointment. Intensive Outpatient Psychiatry [address] [place] [address] (t)[phone] *IOP intake appointment scheduled today, 09/03/16, at 12:45PM. Copies To: Dr. Sadaf Ramirez; IOP
--- NOTE | 2016-09-03 12:16 | NUR ---
Patient is A&O X 3, compliant with medication and group therapies. Patient is being discharge today and will be going to [facility] for his discharge and aftercare program. Patient demonstrates good insight of his mental illness and verbalizes some positive coping skills such as compliance to medication and follow-ups appointment, reporting of his adverse s/s and the acknowledgement of the emergency phone and to use it when feeling overwhelmed or out of control. Pt mood is stable with appropriate affect, denies thought of self-harm and to someone else.
[2016-09-03 12:21] VITALS: BP 151/78
--- NOTE | 2016-09-08 12:13 | IP INCIDENTAL NOTE PSYCH ---
Incidental Note Notation: Patient called to speak to this commercial underwriter today. Stated that over the last few days he was not sleeping well, so 2 days he stopped prescribed abilify which he contributed insomnia to. Stated that since being off of it he has resumed sleeping and feels "fine." Patient was instructed to start taking Abilify 5mg QAM rather than at bedtime to see if it is better tolerated. Patient was agreeable and verbalized understanding of all education. He denied suicidal and homicidal ideation; he denied symptoms of psychosis. Informed that in the event of an emergency to call 911/go to nearest emergency department. Patient verbalized understanding of all instructions. 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 He was advised to follow up with prescriber tomorrow.
== END 2016-09-03 12:57 | DRG 885 ==
LOC: ERH 14:55 → CP SOUTH 08-31 12:55 → ERHI 08-31 12:55 → ENTRNSPT 08-31 16:05 → CP SOUTH 08-31 16:25 → CMPTRNSPT 08-31 21:02 → CP SOUTH 09-01 10:36 → ENPENDDIS 09-03 13:30
PROVIDERS: Emergency Medicine; Internal Medicine; Registered Nurse Psychiatric/Mental Health; ADMIT Psychiatry & Neurology Psychiatry
DX: F39 Unspecified mood [affective] disorder (principal); F12.10 Cannabis abuse, uncomplicated; Z72.0 Tobacco use
CPT/HCPCS: 36415; 80307; 93005; 93010; G0463; G0480